=== PATIENT | female | born 1970 | race Caucasian/White ===

== ENCOUNTER 2016-11-23 23:15 | Inpatient (IN) | payer MEDICAID ==
[~2016-11-23] VITALS: Ht 167.6 cm; Wt 65.9 kg
--- NOTE | 2016-11-24 03:23 | ERA ---
ER Documentation Chief Complaint Date/Time DATE: 11/24/16 TIME: 03:22 Chief Complaint Right leg pain HPI The patient is a 46-year-old female, presenting to the ER because of right leg pain for more than 2 months. She was seen at [facility] about 2 weeks ago. She complained of worsening pain and the open lesion is getting bigger with foul-smelling discharge. She denies fever, chills, neck pain, chest pain, dyspnea, abdominal pain, vomiting, dysuria, diarrhea. She does not smoke nor drink Past medical/surgical history: None ROS All systems reviewed and are negative except as per history of present illness. Allergies Allergies: Coded Allergies: No Known Drug Allergies (Verified Allergy, Unknown, 11/23/16) Physical Exam Vitals Vital Signs Date Time Temp Pulse Resp B/P Pulse Ox O2 Delivery O2 Flow Rate FiO2 11/23/16 23:34 97.8 69 20 116/82 100 Physical Exam Const: No acute distress. Head: Atraumatic. Eyes: Normal Conjunctiva. ENT: Normal External Ears, Nose and Mouth. Neck: Full range of motion. No meningismus. Resp: Clear to auscultation bilaterally. Cardio: Regular rate and rhythm, no murmurs. Abd: Soft, non distended, normal bowel sounds, non tender. Skin: No petechiae or rashes. Back: No midline or flank tenderness. Ext: Right lower extremity with a large open lesion with foul- smelling discharge with surrounding erythema, vague and mild calf tenderness Neur: Awake and alert. No focal deficit Psych: Normal Mood and Affect. Result Diagram: 11/24/16 0401 11/24/16 0401 Results 24 hrs Laboratory Tests Test 11/24/16 04:01 White Blood Count 6.310^3/ul Red Blood Count 3.3010^6/ul Hemoglobin 9.4g/dl Hematocrit 29.5% Mean Corpuscular Volume 89.4fl Mean Corpuscular Hemoglobin 28.5pg Mean Corpuscular Hemoglobin Concent 31.9g/dl Red Cell Distribution Width 12.5% Platelet Count 71496^3/UL Mean Platelet Volume 10.5fl Neutrophils % 55.6% Lymphocytes % 33.2% Monocytes % 8.5% Eosinophils % 2.1% Basophils % 0.3% Nucleated Red Blood Cells % 0.0/100WBC Neutrophils # 3.510^3/ul Lymphocytes # 2.110^3/ul Monocytes # 0.510^3/ul Eosinophils # 0.110^3/ul Basophils # 0.010^3/ul Nucleated Red Blood Cells # 0.010^3/ul Prothrombin Time 12.5Sec Prothrombin Time Ratio 1.0 INR International Normalized Ratio 0.93 Activated Partial Thromboplast Time 21.3Sec Urine Color LT. YELLOW Urine Clarity CLEAR Urine pH 7.0 Urine Specific [place] 1.020 Urine Ketones NEGATIVE Urine Nitrite NEGATIVE Urine Bilirubin NEGATIVE Urine Urobilinogen 0.2 E.U./dL Urine Leukocyte Esterase 1+ Urine Microscopic RBC 0-2/HPF Urine Microscopic WBC 10-25/HPF Urine Squamous Epithelial Cells FEW Urine Bacteria OCCASIONAL Urine Hemoglobin NEGATIVE Urine Glucose NEGATIVE% Urine Total Protein NEGATIVE Sodium Level 138mmol/L Potassium Level 4.6mmol/L Chloride Level 103mmol/L Carbon Dioxide Level 26mmol/L Anion Gap 14 Blood Urea Nitrogen 15mg/dl Creatinine 0.79mg/dl Glucose Level 100mg/dl Lactic Acid Level 0.7mmol/L Calcium Level 9.5mg/dl Total Bilirubin 0.0mg/dl Direct Bilirubin 0.00mg/dl Indirect Bilirubin 0.0mg/dl Aspartate Amino Transf (AST/SGOT) 38IU/L Alanine Aminotransferase (ALT/SGPT) 43IU/L Alkaline Phosphatase 86IU/L Total Protein 8.6g/dl Albumin 4.7g/dl Globulin 3.90g/dl Albumin/Globulin Ratio 1.20 Current Medications Medications (Trade) Dose Ordered Sig/Maddie Route PRN Reason Start Time Stop Time Status Last Admin Dose Admin Vancomycin HCl 250 ml @ 125 mls/hr ONCE IVPB 11/24/16 04:00 11/24/16 05:59 Piperacillin Sod/ Tazobactam Sod (Zosyn 3.375gm/ 100 ml (Pmx)) 100 ml @ 200 mls/hr ONCE ONCE IVPB 11/24/16 04:00 11/24/16 04:29 DC 11/24/16 04:39 Procedures/MDM [place] [id number] Radiology Main Line: [phone] DIAGNOSTIC IMAGING REPORT Patient: ROSSY CHOU : 1970 Age: 46 Sex: F MR #: [id number] DOS: 11/24/16 0328 Ordering MD: ALMAS HERRERA MD Location: E/R Room/Bed: PROCEDURE: XR Tibia and Fibula. CLINICAL INDICATION: Pain TECHNIQUE: AP and lateral views of the right tibia and fibula are available for review. COMPARISON: None available FINDINGS: The osseous structures demonstrate normal alignment and mineralization. No acute fracture or dislocation is seen. There is no periostitis. No radiopaque foreign body is identified. There is diffuse soft tissue edema with varicosities there is a small plantar calcaneal spur. seen medially. IMPRESSION: 1. Diffuse soft tissue edema. No acute osseous abnormality identified. 2. Small plantar calcaneal spur. RPTAT: HH .Marianela Alexander MD, MD Date Time Electronically viewed and signed by .Marianela Alexander MD, MD on 11/24/2016 04 :41 .G/ CC: ALMAS HERRERA MD [place] [id number] Radiology Main Line: [phone] DIAGNOSTIC IMAGING REPORT Patient: ROSSY CHOU : 1970 Age: 46 Sex: F MR #: [id number] DOS: 11/24/16327 Ordering MD: ALMAS HERRERA MD Location: E/R Room/Bed: PROCEDURE: Lower extremity Doppler CLINICAL INDICATION: Swelling of limb TECHNIQUE: Fenton scale and color Doppler imaging of the right lower extremity COMPARISON: None FINDINGS: There is no evidence for deep venous thrombosis of the right lower extremity. The deep veins were fully compressible and normal augmentation was seen. No Augustin's cyst was seen. No calf vein thrombus was seen. IMPRESSION: No evidence for right deep venous thrombosis. RPTAT: HLBE Physician Caryl Date Time Electronically viewed and signed by Adry Childs Physician on 11/24/2016 04 :19 LE/ CC: ALMAS HERRERA MD [place] [id number] Radiology Main Line: [phone] DIAGNOSTIC IMAGING REPORT Patient: ROSSY CHOU : 1970 Age: 46 Sex: F MR #: [id number] DOS: 11/24/16 0328 Ordering MD: ALMAS HERRERA MD Location: E/R Room/Bed: PROCEDURE: XR Chest. CLINICAL INDICATION: Shortness of breath TECHNIQUE: An AP view of the chest was obtained. COMPARISON: No prior exam is available for comparison. FINDINGS: There is prominence of the interstitial markings. No pleural effusion or pneumothorax is seen. The cardiomediastinal silhouette is upper limits of normal in size. The osseous structures demonstrate senescent changes. IMPRESSION: Mild prominence of the interstitial markings, may reflect mild underlying interstitial edema or chronic lung changes. RPTAT: HH .Marianela Alexander MD, Date Time Electronically viewed and signed by .Marianela Alexander MD, MD on 11/24/2016 04 :42 .G/ CC: ALMAS HERRERA MD MEDICAL MAKING DECISION: The patient is a 46-year-old female, presenting with acute right lower extremity cellulitis, acute cystitis, acute dehydration. She was treated with vancomycin IV, Zosyn IV, normal saline 30 mL/kg IV. The differential diagnoses considered include but are not limited to abscess, osteomyelitis, UTI, pyelonephritis Departure Diagnosis: Primary Impression: Cellulitis of right leg Additional Impressions: UTI (urinary tract infection) Anemia Condition: Good Comments I discussed the findings with the patient. I discussed the patient with the on- call hospitalist Dr. Reddy who was made aware of the lab, the treatment, the patient condition. The patient is admitted to [facility] [place] at 4:45 am ALMAS HERRERA MD Nov 24, 2016 03:22
[2016-11-24] MEDS ORDERED: PIPER-TAZO 3.375 GM IV (PMX) 100 ML IVPB ONE (04:00)
[2016-11-24] MEDS ORDERED: VANCOMYCIN 1 GM (PMX) 250 ML IVPB SCH (04:00)
[2016-11-24 04:17] LABS: ADD SCAN DIFF NO
--- NOTE | 2016-11-24 04:19 | RADRPT ---
PROCEDURE: Lower extremity Doppler CLINICAL INDICATION: Swelling of limb TECHNIQUE: [place] scale and color Doppler imaging of the right lower extremity COMPARISON: None FINDINGS: There is no evidence for deep venous thrombosis of the right lower extremity. The deep veins were f ully compressible and normal augmentation was seen. No Augustin's cyst was seen. No calf vein thrombu s was seen. IMPRESSION: No evidence for right deep venous thrombosis. RPTAT: HLBE Adry Childs Physician Date Time Electronically viewed and signed by Adry Childs, Physician on 11/24/2016 04:19 LE/
[2016-11-24 04:21] LABS: BASOPHILS % 0.3 % (0.0-2.0); EOSINOPHILS # 0.1 10^3/ul (0.0-0.5); EOSINOPHILS % 2.1 % (0.0-7.0); HEMATOCRIT 29.5 % (37.0-47.0); HEMOGLOBIN 9.4 g/dl (12.0-16.0); LYMPHOCYTES # 2.1 10^3/ul (0.8-2.9); LYMPHOCYTES % 33.2 % (15.0-51.0); MEAN CORPUSCULAR HEMOGLOBIN 28.5 pg (29.0-33.0); MEAN CORPUSCULAR HGB CONC 31.9 g/dl (32.0-37.0); MEAN CORPUSCULAR VOLUME 89.4 fl (82.0-101.0); MEAN PLATELET VOLUME 10.5 fl (7.4-10.4); MONOCYTE # 0.5 10^3/ul (0.3-0.9); MONOCYTES % 8.5 % (0.0-11.0); NEUTROPHIL # 3.5 10^3/ul (1.6-7.5); NEUTROPHILS % 55.6 % (39.0-77.0); PLATELET COUNT 404 10^3/UL (140-415); RED CELL DISTRIBUTION WIDTH 12.5 % (11.5-14.5); WHITE BLOOD COUNT 6.3 10^3/ul (4.8-10.8)
[2016-11-24 04:22] LABS: ADD UMIC YES; URINE BILIRUBIN (Dip) NEGATIVE (NEGATIVE); URINE BLOOD (Dip) NEGATIVE (NEGATIVE); URINE COLOR LT. YELLOW (YELLOW); URINE GLUCOSE (Dip) NEGATIVE (NEGATIVE); URINE KETONES (Dip) NEGATIVE (NEGATIVE); URINE LEUKOCYTE ESTERASE (Dip) 1+ (NEGATIVE); URINE NITRITE (Dip) NEGATIVE (NEGATIVE); URINE TOTAL PROTEIN (Dip) NEGATIVE (NEGATIVE); URINE UROBILINOGEN (Dip) 0.2 E.U./dL (0.1-1.0)
[2016-11-24 04:31] LABS: INR 0.93; PROTIME 12.5 Sec (12.2-14.2)
[2016-11-24 04:32] LABS: PARTIAL THROMBOPLASTIN TIME 21.3 Sec (25.0-35.0)
[2016-11-24 04:36] LABS: BACTERIA,URINE OCCASIONAL; SQUAMOUS EPITHELIAL CELL,UR FEW; URINE RBCS 0-2 /HPF (0)
[2016-11-24 04:38] LABS: ALBUMIN 4.7 g/dl (3.3-4.9); ALBUMIN/GLOBULIN RATIO 1.2; CALCIUM 9.5 mg/dl (8.4-10.2); CREATININE 0.79 mg/dl (0.44-1.00); POTASSIUM 4.6 mmol/L (3.5-5.1); TOTAL PROTEIN 8.6 g/dl (6.1-8.1)
--- NOTE | 2016-11-24 04:41 | RADRPT ---
PROCEDURE: XR Tibia and Fibula. CLINICAL INDICATION: Pain TECHNIQUE: AP and lateral views of the right tibia and fibula are available for review. COMPARISON: None available FINDINGS: The osseous structures demonstrate normal alignment and mineralization. No acute fracture or disloc ation is seen. There is no periostitis. No radiopaque foreign body is identified. There is diffuse soft tissue edema with varicosities there is a small plantar calcaneal spur. seen medially. IMPRESSION: 1. Diffuse soft tissue edema. No acute osseous abnormality identified. 2. Small plantar calcaneal spur. RPTAT: HH .Marianela Alexander MD, MD Date Time Electronically viewed and signed by .Marianela Alexander MD, MD on 11/24/2016 04:41 .G/
--- NOTE | 2016-11-24 04:42 | RADRPT ---
PROCEDURE: XR Chest. CLINICAL INDICATION: Shortness of breath TECHNIQUE: An AP view of the chest was obtained. COMPARISON: No prior exam is available for comparison. FINDINGS: There is prominence of the interstitial markings. No pleural effusion or pneumothorax is seen. Th e cardiomediastinal silhouette is upper limits of normal in size. The osseous structures demonstra te senescent changes. 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 RPTAT: HH .Marianela Alexander MD, MD Date Time Electronically viewed and signed by .Marianela Alexander MD, MD on 11/24/2016 04:42 .G/
[2016-11-24] MEDS ORDERED: SOD CHLORIDE 0.9% IV ONE (05:30)
[2016-11-24] MEDS ORDERED: ACETAMINOPHEN 325 MG TAB PO PRN (07:30)
[2016-11-24] MEDS ORDERED: morphine 2 MG INJ IV PRN (07:30)
[2016-11-24] MEDS ORDERED: NACL 0.9% 3 ML SYG IV SCH (07:30)
[2016-11-24] MEDS ORDERED: ONDANSETRON 4 MG INJ IV PRN (07:30)
[2016-11-24] MEDS ORDERED: VANCOMYCIN IV PER PHARMACY XX SCH (07:30)
[2016-11-24] MEDS: CEFEPIME 1GM/50 ML (PMX) 50 ML IVPB SCH ×2 (08:54→23:17)
[2016-11-24] MEDS: HEPARIN 5,000 UNIT/0.5 ML VIAL SC SCH ×2 (08:57→23:19)
--- NOTE | 2016-11-24 09:17 | HP ---
Date/Time of Note Date/Time of Note DATE: 11/24/16 TIME: 09:09 Assessment/Plan VTE Prophylaxis VTE Prophylaxis Intervention: heparin Assessment/Plan Assessment/Plan IMPRESSION 46 yo female with progressively worsening Right leg Ulcer of 2 months duration despite abx treatment PLAN Broad spectrum abx ID and vascular consult Pain mgmt will f/u culture results HPI/ROS Admit Date/Time Admit Date/Time Hx of Present Illness This is a 46 yo female with no significant medical history who presented to ER with Right leg wound/ulcer and pain. She said it started out small 2 months ago with associated erythema on her floyd, but has been progressively getting worse. she said she has been to [facility] and has been treated with abx without help. Denied I&D. She does not have any other complains. . PMH/Family/Social Social History Smoking Status: Never smoker Exam/Review of Systems Vital Signs Vitals Vital Signs Date Time Temp Pulse Resp B/P Pulse Ox O2 Delivery O2 Flow Rate FiO2 11/24/16 08:00 69 18 113/61 100 Room Air 11/24/16 05:24 98.1 Exam Constitutional: alert, oriented, well developed Psych: no complaints Head: atraumatic, normocephalic Eyes: EOMI, PERRL Respiratory: clear to auscultation, normal air movement Cardiovascular: nl pulses, regular rate and rhythm Gastrointestinal: non-tender, soft Extremities: other (right leg with moderate size ulcer on lower floyd with surrounding erythema. there are eythematous area upper floyd with very superficial silvery s) Labs Result Diagram: 11/24/16 0401 11/24/16 0401 Medications Medications Current Medications Ondansetron HCl (Zofran Inj) 4 mg Q6H PRN IV NAUSEA AND/OR VOMITING; Start at 07:30; Status UNV Acetaminophen (Tylenol Tab) 650 mg Q6H PRN PO PAIN LEVEL 1-3 OR FEVER; Start at 07:30; Status UNV Morphine Sulfate (morphine) 2 mg Q4H PRN IV SEVERE PAIN LEVEL 7-10; Start 11/24 at 07:30; Status UNV Heparin Sodium (Porcine) 5000 unit 5,000 unit Q12 SC Last administered on t 08:57; Admin Dose 5,000 UNIT; Start 11/24/16 at 09:00 Cefepime HCl (Maxipime 1gm/50 ml (Pmx)) 50 ml @ 100 mls/hr Q12 IVPB Last administered on 11/24/16t 08:54; Admin Dose 100 MLS/HR; Start 11/24/16 at 09:00 HERMELINDO LLOYD MD Nov 24, 2016 09:17
--- NOTE | 2016-11-24 14:21 | CONS ---
DATE OF ADMISSION: 11/23/2016 DATE OF CONSULTATION: 11/24/2016 REFERRING PHYSICIAN: Dr. Earlene Grimaldo REASON FOR CONSULTATION: Right medial ankle chronic venous ulcer. HISTORY OF PRESENT ILLNESS: This is a very pleasant 46-year-old woman. She is otherwise healthy. She has large varicose veins in the right leg, but had not really had any problem with them until ab out 2 months ago when she bumped her right ankle and it has been progressively enlarging. The venous stasis ulcer is just not healing. She has putting bacitracin on it and it has progressed and she p romptly came to the emergency room today. PAST MEDICAL HISTORY: Significant for nothing. She has not had any surgeries. She has no medical p roblems such as diabetes or hypertension. She does have large varicose veins in the right thigh and calf and she has in the past used compression stockings, but not recently. MEDICATIONS: Prior to admission she was just using some Bactroban ointment. ALLERGIES: NO KNOWN DRUG ALLERGIES. SOCIAL HISTORY: She is a nonsmoker. She works at [employer]. She stands on her feet . FAMILY HISTORY: Noncontributory. PHYSICAL EXAMINATION: GENERAL: She is a middle-aged, woman. 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 NECK: She has 2+ carotid pulses bilaterally, 2+ radial and brachial pulses bilaterally. LUNGS: Clear. HEART: Regular rate. EXTREMITIES: 2+ popliteal, DP and PT pulses in both lower extremities. She has huge varicose veins in the right medial thigh and calf, even going down and there is a large necrotic venous peewee is ulcer at the right . There is some mild edema around the serous drainage. She has no t decompression. She has 1 to 2+ edema in the calf and foot. LABORATORY DATA: White count is normal IMPRESSION: Nonhealing venous stasis ulcer, right medial ankle. X-ray shows no osteomyelitis. ___ __ venous pressure venous insufficiency. She needs wound care. I will order Arslan to be appli ed and see Dr. Mejia. She is less cellulitis is under controlled with the multilayer c ompression wraps . Dictated By: GUILHERME SHEFFIELD/ALEXY Conf#: [id number] DID#: [id number] CC: EARLENE GRIMALDO MD; MARIA A MEJIA DPM;*End*
[2016-11-24] MEDS: VANCOMYCIN 1 GM in NS 250 ML IVPB SCH (15:17)
--- NOTE | 2016-11-24 16:03 | PN ---
Date/Time of Note Date/Time of Note DATE: 11/24/16 TIME: 16:00 Assessment/Plan VTE Prophylaxis VTE Prophylaxis Intervention: other Assessment/Plan Chief Complaint/Hosp Course Assessment and plan 1. right leg Ulcer of 2 months duration despite abx treatment Continue Broad spectrum abx vascular surgery and podiatry consult is been obtained Pain mgmt will f/u culture results Arterial study as per vascular surgeon We will continue monitor patient closely for further management as per clinical course Problems: Subjective 24 Hr Interval Summary Free Text/Dictation Patient continues to complain of having right lower extremity discomfort No fever or chills Denies of any chest pain or shortness of breath Exam/Review of Systems Vital Signs Vitals Vital Signs Date Time Temp Pulse Resp B/P Pulse Ox O2 Delivery O2 Flow Rate FiO2 11/24/16 14:43 98.6 69 18 147/86 100 Room Air Exam General: The patient is well-developed, Not in acute distress. HEENT: Atraumatic, normocephalic. The pupils are equal and round . Neck: Supple with full range of motion. Chest: Normal expansion of the thorax during inspiration Lungs: Clear to auscultation bilaterally Heart: Normal S1-S2, Regular rhythm and rate. Abdomen: Soft , nontender, nondistended , bowel sounds are present. Extremities: Right ankle ulcer 35 cm in medial aspect of the floyd with erythema , minimal edema Neurologic: Normal mental status,The patient is awake, alert and oriented . Results Result Diagram: 11/24/16 0401 11/24/16 0401 Results 24 hrs Laboratory Tests Test 11/24/16 04:01 11/24/16 05:50 11/24/16 08:31 White Blood Count 6.3 Red Blood Count 3.30 L Hemoglobin 9.4 L Hematocrit 29.5 L Mean Corpuscular Volume 89.4 Mean Corpuscular Hemoglobin 28.5 L Mean Corpuscular Hemoglobin Concent 31.9 L Red Cell Distribution Width 12.5 Platelet Count 404 Mean Platelet Volume 10.5 H Neutrophils % 55.6 Lymphocytes % 33.2 Monocytes % 8.5 Eosinophils % 2.1 Basophils % 0.3 Nucleated Red Blood Cells % 0.0 Neutrophils # 3.5 Lymphocytes # 2.1 Monocytes # 0.5 Eosinophils # 0.1 Basophils # 0.0 Nucleated Red Blood Cells # 0.0 Erythrocyte Sedimentation Rate 27 H Prothrombin Time 12.5 Prothrombin Time Ratio 1.0 INR International Normalized Ratio 0.93 Activated Partial Thromboplast Time 21.3 L Urine Color LT. YELLOW Urine Clarity CLEAR Urine pH 7.0 Urine Specific [place] 1.020 Urine Ketones NEGATIVE Urine Nitrite NEGATIVE Urine Bilirubin NEGATIVE Urine Urobilinogen 0.2 E.U./dL Urine Leukocyte Esterase 1+ H Urine Microscopic RBC 0-2 Urine Microscopic WBC 10-25 Urine Squamous Epithelial Cells FEW Urine Bacteria OCCASIONAL Urine Hemoglobin NEGATIVE Urine Glucose NEGATIVE Urine Total Protein NEGATIVE Sodium Level 138 Potassium Level 4.6 Chloride Level 103 Carbon Dioxide Level 26 Anion Gap 14 Blood Urea Nitrogen 15 Creatinine 0.79 Glucose Level 100 Lactic Acid Level 0.7 1.5 0.7 Calcium Level 9.5 Total Bilirubin 0.0 L Direct Bilirubin 0.00 Indirect Bilirubin 0.0 Aspartate Amino Transf (AST/SGOT) 38 Alanine Aminotransferase (ALT/SGPT) 43 Alkaline Phosphatase 86 Total Protein 8.6 H Albumin 4.7 Globulin 3.90 H Albumin/Globulin Ratio 1.20 Medications Medications Current Medications Ondansetron HCl (Zofran Inj) 4 mg Q6H PRN IV NAUSEA AND/OR VOMITING; Start at 07:30 Acetaminophen (Tylenol Tab) 650 mg Q6H PRN PO PAIN LEVEL 1-3 OR FEVER; Start at 07:30 Morphine Sulfate (morphine) 2 mg Q4H PRN IV SEVERE PAIN LEVEL 7-10; Start 11/24 at 07:30 Heparin Sodium (Porcine) 5000 unit 5,000 unit Q12 SC Last administered on 08:57; Admin Dose 5,000 UNIT; Start 11/24/16 at 09:00 Cefepime HCl (Maxipime 1gm/50 ml (Pmx)) 50 ml @ 100 mls/hr Q12 IVPB Last administered on 11/24/16 08:54; Admin Dose 100 MLS/HR; Start 11/24/16 at 09:00 Collagenase 1 applic 1 applic DAILY TOP ; Start 11/25/16 at 09:00 Vancomycin HCl (Vancocin) 250 ml @ 125 mls/hr Q12H IVPB Last administered on 15:17; Admin Dose 125 MLS/HR; Start 11/24/16 at 14:30 EARLENE GRIMALDO MD Nov 24, 2016 16:02
[2016-11-24 21:22] VITALS: PULSE 64; TEMP 98
[2016-11-24 21:40] VITALS: Ht 167.6 cm; Wt 65.9 kg
[2016-11-25] MEDS: VANCOMYCIN 1 GM in NS 250 ML IVPB SCH ×2 (04:05→15:56)
[2016-11-25 05:57] LABS: ADD SCAN DIFF NO
[2016-11-25 06:10] LABS: BASOPHILS % 0.5 % (0.0-2.0); EOSINOPHILS # 0.2 10^3/ul (0.0-0.5); EOSINOPHILS % 3.4 % (0.0-7.0); HEMATOCRIT 37.6 % (37.0-47.0); LYMPHOCYTES # 2.1 10^3/ul (0.8-2.9); LYMPHOCYTES % 37.4 % (15.0-51.0); MEAN CORPUSCULAR HEMOGLOBIN 28.5 pg (29.0-33.0); MEAN CORPUSCULAR HGB CONC 31.9 g/dl (32.0-37.0); MEAN CORPUSCULAR VOLUME 89.3 fl (82.0-101.0); MEAN PLATELET VOLUME 9.9 fl (7.4-10.4); MONOCYTE # 0.5 10^3/ul (0.3-0.9); MONOCYTES % 9.3 % (0.0-11.0); NEUTROPHIL # 2.8 10^3/ul (1.6-7.5); NEUTROPHILS % 49.4 % (39.0-77.0); PLATELET COUNT 283 10^3/UL (140-415); RED BLOOD COUNT 4.21 10^6/ul (4.20-5.40); RED CELL DISTRIBUTION WIDTH 12.3 % (11.5-14.5); WHITE BLOOD COUNT 5.7 10^3/ul (4.8-10.8)
[2016-11-25] MEDS ORDERED: PENDING SANTYL ORDER FOR WOUND CARE XX PRN (06:30)
[2016-11-25 06:31] LABS: BILIRUBIN,INDIRECT 0.3 mg/dl (0-1.1); BILIRUBIN,TOTAL 0.3 mg/dl (0.2-1.3); CREATININE 0.74 mg/dl (0.44-1.00)
[2016-11-25 06:32] LABS: CALCIUM 9.2 mg/dl (8.4-10.2); PHOSPHORUS 3.8 mg/dl (2.5-4.9)
[2016-11-25 08:12] VITALS: BP 121/76; RESP 18
[2016-11-25 08:25] LABS: CHOL/HDL RATIO 2.5 RATIO
[2016-11-25] MEDS: HEPARIN 5,000 UNIT/0.5 ML VIAL SC SCH ×2 (08:39→21:50)
--- NOTE | 2016-11-25 09:54 | PN ---
Date/Time of Note Date/Time of Note DATE: 11/25/16 TIME: 09:46 Assessment/Plan VTE Prophylaxis VTE Prophylaxis Intervention: heparin Lines/Catheters IV [facility] Saline Lock Urinary Cath still in place: No Assessment/Plan Chief Complaint/Hosp Course Assessment and plan 1. Right leg ulcer for 2 months duration (failed outpatient antibiotic treatment). Continue on antibiotics for now. Vascular surgeon following. Patient for vascular study. Will follow up. Podiatry to follow continue pain management. Follow-up on cultures. Adjust antibiotics accordingly. Disposition plan: Follow-up on arterial study. Continue supportive care Discussed plan of care with Dr. Hubbard Problems: Subjective 24 Hr Interval Summary Free Text/Dictation patient for vascular study Exam/Review of Systems Vital Signs Vitals Vital Signs Date Time Temp Pulse Resp B/P Pulse Ox O2 Delivery O2 Flow Rate FiO2 11/25/16 08:12 98.6 78 18 121/76 97 11/24/16 21:22 Room Air Intake and Output 11/24/16 11/24/16 11/25/16 14:59 22:59 06:59 Intake Total 1250 ml Balance 1250 ml Exam patient for vascular study Results Result Diagram: 11/25/16 0505 11/25/16 0505 Results 24 hrs Laboratory Tests Test 11/25/16 05:05 White Blood Count 5.7 Red Blood Count 4.21 # Hemoglobin 12.0 # Hematocrit 37.6 # Mean Corpuscular Volume 89.3 Mean Corpuscular Hemoglobin 28.5 L Mean Corpuscular Hemoglobin Concent 31.9 L Red Cell Distribution Width 12.3 Platelet Count 283 # Mean Platelet Volume 9.9 Neutrophils % 49.4 Lymphocytes % 37.4 Monocytes % 9.3 Eosinophils % 3.4 Basophils % 0.5 Nucleated Red Blood Cells % 0.0 Neutrophils # 2.8 Lymphocytes # 2.1 Monocytes # 0.5 Eosinophils # 0.2 Basophils # 0.0 Nucleated Red Blood Cells # 0.0 Sodium Level 142 Potassium Level 4.0 Chloride Level 104 Carbon Dioxide Level 27 Anion Gap 15 Blood Urea Nitrogen 11 Creatinine 0.74 Glucose Level 93 Calcium Level 9.2 Phosphorus Level 3.8 Magnesium Level 2.0 Total Bilirubin 0.3 Direct Bilirubin 0.00 Indirect Bilirubin 0.3 Aspartate Amino Transf (AST/SGOT) 32 Alanine Aminotransferase (ALT/SGPT) 37 Alkaline Phosphatase 82 Total Protein 8.0 Albumin 4.0 Globulin 4.00 H Albumin/Globulin Ratio 1.00 Triglycerides Level 61 Cholesterol Level 171 LDL Cholesterol, Calculated 93 HDL Cholesterol 66 Cholesterol/HDL Ratio 2.5 Medications Medications Current Medications Ondansetron HCl (Zofran Inj) 4 mg Q6H PRN IV NAUSEA AND/OR VOMITING; Start at 07:30 Acetaminophen (Tylenol Tab) 650 mg Q6H PRN PO PAIN LEVEL 1-3 OR FEVER; Start at 07:30 Morphine Sulfate (morphine) 2 mg Q4H PRN IV SEVERE PAIN LEVEL 7-10; Start 11/24 at 07:30 Heparin Sodium (Porcine) 5000 unit 5,000 unit Q12 SC Last administered on 08:39; Admin Dose 5,000 UNIT; Start 11/24/16 at 09:00 Cefepime HCl (Maxipime 1gm/50 ml (Pmx)) 50 ml @ 100 mls/hr Q12 IVPB Last administered on 11/24/16 23:17; Admin Dose 100 MLS/HR; Start 11/24/16 at 09:00 Collagenase 1 applic 1 applic DAILY TOP ; Start 11/25/16 at 09:00 Vancomycin HCl (Vancocin) 250 ml @ 125 mls/hr Q12H IVPB Last administered on 04:05; Admin Dose 125 MLS/HR; Start 11/24/16 at 14:30 Miscellaneous Information (*Rx Drug Level Order Reminder*) VANCO TR LEVEL PRIOR... ONCE ONCE XX ; Start 11/25/16 at 13:30; Stop 11/25/16 at 13:31 Miscellaneous Information (Pending Santyl Order For Wound Care) This patient caro... PRN PRN XX WOUND CARE; Start 11/25/16 at 06:30 KM RODRIGUEZ Nov 25, 2016 09:54
[2016-11-25] MEDS: CEFEPIME 1GM/50 ML (PMX) 50 ML IVPB SCH ×2 (12:27→21:49)
[2016-11-25] MEDS: COLLAGENASE 30 GM TUBE TOP SCH (16:00)
--- NOTE | 2016-11-25 19:57 | RADRPT ---
PROCEDURE: US bilateral lower extremity arteries. CLINICAL INDICATION: Bilateral leg pain. Claudication that interferes significantly with the hola ent's lifestyle. TECHNIQUE: Multiple longitudinal and transverse images of the bilateral lower extremity arteries w ere obtained with crook scale, pulsed Doppler, and color Doppler imaging. COMPARISON: No prior studies are available for comparison. FINDINGS: Right SENIOR SUPPLIER QUALITY ENGINEER:108 cm/sec PSFA:102 cm/sec MSFA:101 cm/sec DSFA:95 cm/sec POP:58 cm/sec AUTOMATIC NAILING MACHINE FEEDER:91 cm/sec DPA:34 cm/sec Left SENIOR SUPPLIER QUALITY ENGINEER:99 cm/sec PSFA:94 cm/sec MSFA:76 cm/sec DSFA:67 cm/sec POP:67 cm/sec AUTOMATIC NAILING MACHINE FEEDER:93 cm/sec DPA:45 cm/sec The right ankle-brachial index is 0.9 and the left ankle-brachial index is 1.0. There is normal triphasic flow throughout bilaterally. There is no plaque, stenosis, or occlusion. IMPRESSION: 1. Normal bilateral lower extremity arterial Doppler. RPTAT: QQ .Mich Hirsch MD, Date Time Electronically viewed and signed by .Mich Hirsch MD, on 11/25/2016 19:57 .R/
[2016-11-25 20:17] VITALS: BP 134/71; RESP 20
[2016-11-26] MEDS: VANCOMYCIN 1 GM in NS 250 ML IVPB SCH ×2 (02:05→14:58)
[2016-11-26 08:00] VITALS: BP 120/76; RESP 19
[2016-11-26] MEDS: CEFEPIME 1GM/50 ML (PMX) 50 ML IVPB SCH ×2 (09:55→21:15)
[2016-11-26] MEDS: HEPARIN 5,000 UNIT/0.5 ML VIAL SC SCH ×2 (09:56→21:17)
[2016-11-26] MEDS: COLLAGENASE 30 GM TUBE TOP SCH (09:57)
--- NOTE | 2016-11-26 10:57 | PN ---
Date/Time of Note Date/Time of Note DATE: 11/26/16 TIME: 10:54 Assessment/Plan VTE Prophylaxis VTE Prophylaxis Intervention: heparin Lines/Catheters IV Catheter Type (from Nrsg): Peripheral IV Urinary Cath still in place: No Assessment/Plan Chief Complaint/Hosp Course Assessment and plan 1. Right leg ulcer for 2 months duration (failed outpatient antibiotic treatment). Continue on antibiotics for now. Of note culture did show Proteus and enterococcus species. Vascular surgeon following. Status post arterial vascular study with noted normal bilateral lower extremity arterial Doppler. . Podiatry to follow .continue pain management. Disposition plan: Continue antibiotics. Await podiatry input. Continue in- house monitoring Discussed plan of care with Dr. Hubbard Problems: Subjective 24 Hr Interval Summary Free Text/Dictation Denies any pain at this time. Comfortable at present Exam/Review of Systems Vital Signs Vitals Vital Signs Date Time Temp Pulse Resp B/P Pulse Ox O2 Delivery O2 Flow Rate FiO2 11/26/16 08:00 97.5 67 19 120/76 99 11/24/16 21:22 Room Air Intake and Output 11/25/16 11/25/16 11/26/16 15:00 23:00 07:00 Intake Total 50 ml 350 ml 850 ml Balance 50 ml 350 ml 850 ml Exam Constitutional: alert, oriented Psych: nl mood/affect Head: normocephalic Eyes: nl conjunctiva Neck: supple, No jvd Respiratory: clear to auscultation, normal air movement Cardiovascular: regular rate and rhythm Gastrointestinal: non-tender Musculoskeletal: nl gait and stance Neurological: RFID ENGINEER II-XII intact, nl mental status, nl speech Skin: other (Erythema seen on right lower extremity with some scaly appearance) Results Result Diagram: 11/25/16 0505 11/25/16 0505 Results 24 hrs Laboratory Tests Test 11/25/16 15:30 Vancomycin Level Trough 10.3 Medications Medications Current Medications Ondansetron HCl (Zofran Inj) 4 mg Q6H PRN IV NAUSEA AND/OR VOMITING; Start at 07:30 Acetaminophen (Tylenol Tab) 650 mg Q6H PRN PO PAIN LEVEL 1-3 OR FEVER; Start at 07:30 Morphine Sulfate (morphine) 2 mg Q4H PRN IV SEVERE PAIN LEVEL 7-10; Start 11/24 at 07:30 Heparin Sodium (Porcine) 5000 unit 5,000 unit Q12 SC Last administered on 09:56; Admin Dose 5,000 UNIT; Start 11/24/16 at 09:00 Cefepime HCl (Maxipime 1gm/50 ml (Pmx)) 50 ml @ 100 mls/hr Q12 IVPB Last administered on 11/26/16 09:55; Admin Dose 100 MLS/HR; Start 11/24/16 at 09:00 Collagenase 1 applic 1 applic DAILY TOP Last administered on 11/26/16 09:57; Admin Dose 1 APPLIC; Start 11/25/16 at 09:00 Vancomycin HCl (Vancocin) 250 ml @ 125 mls/hr Q12H IVPB Last administered on 02:05; Admin Dose 125 MLS/HR; Start 11/24/16 at 14:30 Miscellaneous Information (Pending Santyl Order For Wound Care) This patient caro... PRN PRN XX WOUND CARE; Start 11/25/16 at 06:30 MK RODRIGUEZ Nov 26, 2016 10:57
--- NOTE | 2016-11-26 12:33 | PN ---
Date/Time of Note Date/Time of Note DATE: 11/26/16 TIME: 12:30 Assessment/Plan Lines/Catheters IV Catheter Type (from Nrs): Peripheral IV Small in Place (from Nrsg): No Subjective 24 Hr Interval Summary Wound is still very tender. She says the dressings have not been changed since she was admitted. Exam/Review of Systems Vital Signs Vitals Vital Signs Date Time Temp Pulse Resp B/P Pulse Ox O2 Delivery O2 Flow Rate FiO2 11/26/16 08:00 97.5 67 19 120/76 99 11/24/16 21:22 Room Air Intake and Output 11/25/16 11/25/16 11/26/16 15:00 23:00 07:00 Intake Total 50 ml 350 ml 850 ml Balance 50 ml 350 ml 850 ml Exam Free Text/Dictation R medial calf / ankle infected venous stasis ulcer with huge varicose veins in the thigh and calf Santyl was ordered to be applied to the wound daily Antibiotics per ID Will benefit from 4 layer compression wrap when the infection has resolved and she is less tender Can discharge from my [facility] with PO antibiotics and wound care and f/u with me in the [facility] later this week for debridement and compression therapy Results Result Diagram: 11/25/16 0505 11/25/16 0505 GUILHERME STEWART MD Nov 26, 2016 12:33
[2016-11-26 22:06] VITALS: BP 113/68; RESP 18
[2016-11-27] MEDS: VANCOMYCIN 1 GM in NS 250 ML IVPB SCH ×2 (02:57→14:22)
[2016-11-27 07:35] VITALS: BP 117/71; RESP 16
[2016-11-27] MEDS: COLLAGENASE 30 GM TUBE TOP SCH (09:31)
[2016-11-27] MEDS: CEFEPIME 1GM/50 ML (PMX) 50 ML IVPB SCH ×2 (09:31→20:43)
[2016-11-27] MEDS: HEPARIN 5,000 UNIT/0.5 ML VIAL SC SCH ×2 (09:33→20:44)
--- NOTE | 2016-11-27 16:45 | PN ---
DATE: 11/27/2016 TIME OF EVALUATION: 12:30 p.m. SUBJECTIVE DATA: Denies any right lower extremity pain. The patient is anxious about when she can go home. OBJECTIVE DATA: VITAL SIGNS: Temperature 98.0, pulse rate 57, respiratory rate 16, blood pressure 117/71, oxygen saturation 100% on room air. GENERAL: This is a well-built, well-nourished, female lying in bed in no apparent distress. HEENT: Head normocephalic and atraumatic. Eyes: Anicteric sclerae. Conjunctivae clear. ENT: Nasal septum is midline. Oral mucosa is moist. NECK: Supple. No JVD noticed. RESPIRATORY: Bilaterally clear to auscultation. No adventitious breath sounds. No use of accessory muscles of respiration. CARDIAC: Regular rate and rhythm. No murmurs heard. ABDOMEN: Soft, nontender, nondistended. Bowel sounds positive in all 4 quadrants. GENITOURINARY: Deferred. EXTREMITIES: No cyanosis, no clubbing. Right lower extremity dressing. Right foot tenderness to touch. Peripheral pulses in the bilateral lower extremities are palpable. NEUROLOGIC: The patient is awake, alert and oriented. Cranial nerves are grossly intact. LABORATORY AND DIAGNOSTIC DATA: None for today. ASSESSMENT AND PLAN: 1. Nonhealing venous stasis ulcer of the right medial ankle: Continue antibiotics. We will involve Infectious Disease for streamlining antibiotics. Status-post evaluation by Vascular Surgery who recommended dressing changes. 2. Fluid, Electrolytes and Nutrition: Regular diet. 3. Deep venous thrombosis prophylaxis: Subcutaneous heparin. 4. Gastrointestinal prophylaxis: Not indicated. 5. Plan. Continue antibiotics. Continue pain control. Await ID evaluation. The case was discussed with Dr. Saha. The plan of care was explained to the patient with the help of a certified field crop harvest worker. CHELSEA SAHA MD, AM/ALEXY Conf#: [id number] DID#: [id number] MTDD
[2016-11-27 20:01] VITALS: BP 114/56; RESP 18
--- NOTE | 2016-11-27 20:10 | CONS ---
DATE OF ADMISSION: 11/24/2016 DATE OF CONSULTATION: 11/27/2016 TYPE OF CONSULTATION: Infectious disease. REASON FOR CONSULTATION: Antibiotic management. HISTORY OF PRESENT ILLNESS: Evy Cordova is a 46-year-old female with no significant past medic al history who comes to the emergency room with right leg wound ulcer and pain. She states that it started about 2 months ago, associated with redness on her floyd, but has been progressively getting worse. She was started on antibiotics at [facility]. She did not have an I and D. She comes in no w. On admission, her white count 6.3, H and H 9.4 and 29.5, platelet count 404,000. BUN and creati nine 15/0.79 and random glucose is 100. PAST MEDICAL HISTORY: Operations: None. FAMILY HISTORY: Noncontributory. SOCIAL HISTORY: She does not smoke, drink, or abuse drugs. ALLERGIES: NONE TO PENICILLIN, SULFA, OR FOODS. MEDICATIONS: Per chart. REVIEW OF SYSTEMS: As per HPI. PHYSICAL EXAMINATION: GENERAL: The patient is a well-developed, well-nourished female who is alert, responsive, in no acu te distress. VITAL SIGNS: Stable. She is afebrile. SKIN: Without generalized rash. HEENT: Within normal limits. NECK: Supple. LYMPH NODES: None palpable. CHEST: Decreased breath sounds at the bases. HEART: Without murmur or gallop. ABDOMEN: Soft, nontender without organosplenomegaly or masses. EXTREMITIES: Her right leg has a moderate sized ulcer on the lower tibial area with surrounding uri thema. There are some erythematous areas of the upper floyd as well. RECTAL AND GENITAL: Deferred. NEUROLOGIC: No focal neurological abnormalities. HOSPITAL COURSE: The patient had cultures done, which grew out Proteus mirabilis and enterococcus. Urine was negative. Blood cultures were negative. The patient was started on vancomycin and cefep ellie. X-rays of the tibia and fibula just showed diffuse soft tissue edema. Venous studies were neg ative for DVT. Chest x-ray: Mild prominence of interstitial markings, may reflect underlying inter stitial edema. She had an arterial study done, normal bilateral lower extremity arterial Dopplers. She was seen also by Dr. Reynoso in vascular consultation and he notes right medial calf and ankle in fected venous stasis ulcer with huge varicose veins in the thigh and calf. Will benefit from 4 laye r compression wrap when the infection has resolved and she is less tender. She can get debridement and compression therapy at the [facility]. For now, we will continue her on vancomycin and cefepime. I want to thank the hospitalists for asking me to see this jory lady in consultation. Dictated By: KAREN BAKER MD, JD/ALEXY Conf#: [id number] DID#: [id number] CC: HERMELINDO LLOYD MD;*EndCC*
--- NOTE | 2016-11-27 23:33 | CONS ---
Date/Time of Note Date/Time of Note DATE: 11/27/16 TIME: 23:33 Assessment/Plan Assessment/Plan Problems: (1) Cellulitis of right leg Status: Acute (2) Anemia Status: Acute (3) UTI (urinary tract infection) Status: Acute Additional Assessment/Plan Patient is under care of vascular surgery. Patient will require compression of the right lower extremity with daily dressing changes. Santyl ointment to the wound daily. Patient will be followed in-house. Thank you for consultation. Consultation Date/Type/Reason Admit Date/Time Psychological: nl mood/affect Social History Smoking Status: Never smoker Exam/Review of Systems Vital Signs Vitals Vital Signs Date Time Temp Pulse Resp B/P Pulse Ox O2 Delivery O2 Flow Rate FiO2 11/27/16 20:01 97.8 66 18 114/56 99 11/24/16 21:22 Room Air Intake and Output 11/26/16 11/26/16 11/27/16 15:00 23:00 07:00 Intake Total 50 ml 1150 ml 1050 ml Balance 50 ml 1150 ml 1050 ml Results Result Diagram: 11/25/16 0505 11/25/16 0505 Medications Medications Current Medications Ondansetron HCl (Zofran Inj) 4 mg Q6H PRN IV NAUSEA AND/OR VOMITING; Start at 07:30 Acetaminophen (Tylenol Tab) 650 mg Q6H PRN PO PAIN LEVEL 1-3 OR FEVER; Start at 07:30 Morphine Sulfate (morphine) 2 mg Q4H PRN IV SEVERE PAIN LEVEL 7-10; Start 11/24 at 07:30 Heparin Sodium (Porcine) 5000 unit 5,000 unit Q12 SC Last administered on 20:44; Admin Dose 5,000 UNIT; Start 11/24/16 at 09:00 Cefepime HCl (Maxipime 1gm/50 ml (Pmx)) 50 ml @ 100 mls/hr Q12 IVPB Last administered on 11/27/16 20:43; Admin Dose 100 MLS/HR; Start 11/24/16 at 09:00 Collagenase 1 applic 1 applic DAILY TOP Last administered on 11/27/16 09:31; Admin Dose 1 APPLIC; Start 11/25/16 at 09:00 Vancomycin HCl (Vancocin) 250 ml @ 125 mls/hr Q12H IVPB Last administered on t 14:22; Admin Dose 125 MLS/HR; Start 11/24/16 at 14:30 Miscellaneous Information (Pending [facility] Order For Wound Care) This patient caro... PRN PRN XX WOUND CARE; Start 11/25/16 at 06:30 MARIA A MEJIA DPM November 27, 2016 23:33
[2016-11-28] MEDS: VANCOMYCIN 1 GM in NS 250 ML IVPB SCH (03:02)
[2016-11-28 05:38] LABS: ADD SCAN DIFF NO
[2016-11-28 05:55] LABS: BASOPHILS % 0.4 % (0.0-2.0); EOSINOPHILS # 0.2 10^3/ul (0.0-0.5); HEMATOCRIT 39.3 % (37.0-47.0); HEMOGLOBIN 12.7 g/dl (12.0-16.0); LYMPHOCYTES # 2.2 10^3/ul (0.8-2.9); LYMPHOCYTES % 39.1 % (15.0-51.0); MEAN CORPUSCULAR HEMOGLOBIN 28.5 pg (29.0-33.0); MEAN CORPUSCULAR HGB CONC 32.3 g/dl (32.0-37.0); MEAN CORPUSCULAR VOLUME 88.1 fl (82.0-101.0); MEAN PLATELET VOLUME 9.8 fl (7.4-10.4); MONOCYTE # 0.5 10^3/ul (0.3-0.9); NEUTROPHIL # 2.6 10^3/ul (1.6-7.5); NEUTROPHILS % 47.3 % (39.0-77.0); PLATELET COUNT 302 10^3/UL (140-415); RED BLOOD COUNT 4.46 10^6/ul (4.20-5.40); RED CELL DISTRIBUTION WIDTH 12.3 % (11.5-14.5); WHITE BLOOD COUNT 5.6 10^3/ul (4.8-10.8)
[2016-11-28 06:05] LABS: CALCIUM 9.6 mg/dl (8.4-10.2); CREATININE 0.63 mg/dl (0.44-1.00); MAGNESIUM 1.9 mg/dl (1.7-2.5); PHOSPHORUS 4.4 mg/dl (2.5-4.9)
[2016-11-28 07:51] VITALS: BP 96/61; RESP 20
[2016-11-28] MEDS: COLLAGENASE 30 GM TUBE TOP SCH (09:00)
[2016-11-28] MEDS: CEFEPIME 1GM/50 ML (PMX) 50 ML IVPB SCH (10:30)
[2016-11-28] MEDS: HEPARIN 5,000 UNIT/0.5 ML VIAL SC SCH (10:32)
--- NOTE | 2016-11-28 13:22 | PN ---
DATE: 11/28/2016 SUBJECTIVE: No acute events overnight. No fevers. The patient is alert, feels good, looks comfort able. MICROBIOLOGY: Wound culture growing Proteus mirabilis and enterococcus species. ANTIMICROBIALS: The patient is on: 1. Vancomycin. 2. Cefepime. PHYSICAL EXAMINATION: GENERAL: Well-developed, middle-aged woman who is alert, in no distress. HEENT: Head atraumatic, normocephalic. Sclerae anicteric. Buccal mucosa pink. NECK: Supple. CHEST: Rise symmetrical. Breath sounds clear. HEART: S1, S2. ABDOMEN: Soft. Bowel sounds present. EXTREMITIES: With right lower extremity dressing below knee intact. ASSESSMENT: Right lower extremity cellulitis with chronic wound, wound culture growing enterococcus and Proteus mirabilis susceptible to ampicillin. PLAN: The patient had been seen by podiatry and vascular surgery, clear to be discharged home on or al antibiotics and follow [facility] for debridement and compression therap y. We will recommend to send her on oral amoxicillin and topical gentamicin ointment and also probi otics for 2 weeks. Dictated By: ELAN CIFUENTES CLAM GROWER for KAREN BAKER MD NI/NTS Conf#: [id number] DID#: [id number]
[2016-11-28] MEDS ORDERED: AMOXICILLIN 500 MG CAP PO SCH (14:00)
[2016-11-28] MEDS ORDERED: AMOX1TAB9 PO (16:23)
[2016-11-28] MEDS ORDERED: GENT30CR TOP (16:24)
--- NOTE | 2016-11-28 16:31 | DS ---
Date/Time of Note Date/Time of Note DATE: 11/28/16 TIME: 16:27 Discharge Summary Admission/Discharge Info Admit Date/Time Nov 24, 2016 at 04:52 Discharge Date/Time Final Diagnosis 1. Chronic left lower extremity venous stasis wound, follow up with wound care and PCP Patient Condition: Stable Hx of Present Illness This is a 46 yo female with no significant medical history who presented to ER with Right leg wound/ulcer and pain. She said it started out small 2 months ago with associated erythema on her floyd, but has been progressively getting worse. she said she has been to [facility] and has been treated with abx without help. Denied I&D. She does not have any other complains. . Hospital Course right leg with moderate size ulcer on lower floyd with surrounding erythema. Patient will be on wound care and oral augmentin. She is instructed to keep leg elevated. She will follow up with wound center also. Home Meds Active Scripts Gentamicin Sulfate* (Gentamicin Sulfate* Cream) 0.1% - 30 Gm Cream.gm., 1 APPLIC TOP TID for 14 Days, EA Prov:MICHELLE WILKERSON MD 11/28/16 Amoxicillin/Potassium Clav (Amox-Clav 500-125 mg Tablet) 500-125 mg Tab, 1 TAB PO Q8 for 14 Days, TAB Prov:MICHELLE WILKERSON MD 11/28/16 Follow-up Plan PCP in one week Pending Labs Laboratory Tests Test 11/28/16 04:57 White Blood Count 5.610^3/ul (4.8-10.8) Red Blood Count 4.4610^6/ul (4.20-5.40) Hemoglobin 12.7g/dl (12.0-16.0) Hematocrit 39.3% (37.0-47.0) Mean Corpuscular Volume 88.1fl (82.0-101.0) Mean Corpuscular Hemoglobin 28.5pg (29.0-33.0) Mean Corpuscular Hemoglobin Concent 32.3g/dl (32.0-37.0) Red Cell Distribution Width 12.3% (11.5-14.5) Platelet Count 22013^3/UL (140-415) Mean Platelet Volume 9.8fl (7.4-10.4) Neutrophils % 47.3% (39.0-77.0) Lymphocytes % 39.1% (15.0-51.0) Monocytes % 9.0% (0.0-11.0) Eosinophils % 4.0% (0.0-7.0) Basophils % 0.4% (0.0-2.0) Nucleated Red Blood Cells % 0.0/100WBC (0.0-0.0) Neutrophils # 2.610^3/ul (1.6-7.5) Lymphocytes # 2.210^3/ul (0.8-2.9) Monocytes # 0.510^3/ul (0.3-0.9) Eosinophils # 0.210^3/ul (0.0-0.5) Basophils # 0.010^3/ul (0.0-0.1) Nucleated Red Blood Cells # 0.010^3/ul (0.0-0.0) Sodium Level 138mmol/L (135-144) Potassium Level 4.0mmol/L (3.5-5.1) Chloride Level 103mmol/L (97-110) Carbon Dioxide Level 27mmol/L (21-31) Anion Gap 12 (8-16) Blood Urea Nitrogen 12mg/dl (7-20) Creatinine 0.63mg/dl (0.44-1.00) Glucose Level 92mg/dl (70-220) Calcium Level 9.6mg/dl (8.4-10.2) Phosphorus Level 4.4mg/dl (2.5-4.9) Magnesium Level 1.9mg/dl (1.7-2.5) Vitamin D 1,25-Dihydroxy 23.0ng/ml (30-100) MICHELLE WILKERSON MD November 28, 2016 16:31
[2016-11-28 20:27] VITALS: BP 134/71; RESP 18
[2016-11-28] MEDS ORDERED: GENTAMICIN 0.1% 15 GM OINT TOP SCH (21:00)
== END 2016-11-28 20:26 | disposition home or self-care (01) | DRG 300 ==
LOC: E/R 23:15 → PP2 11-24 04:52
PROVIDERS: ADMIT Internal Medicine; ATTEND Internal Medicine
DX: I83.013 Varicose veins of right lower extremity with ulcer of ankle (principal); L03.115 Cellulitis of right lower limb; N39.0 Urinary tract infection, site not specified; L97.811 Non-pressure chronic ulcer of other part of right lower leg limited to breakdown of skin; I86.8 Varicose veins of other specified sites; B96.4 Proteus (mirabilis) (morganii) as the cause of diseases classified elsewhere; B95.2 Enterococcus as the cause of diseases classified elsewhere; D64.9 Anemia, unspecified; I87.8 Other specified disorders of veins; I87.2 Venous insufficiency (chronic) (peripheral)
CPT/HCPCS: 36415; 71010; 73590; 80048; 80053; 80061; 80202; 81001; 81003; 82306; 82652; 83036; 83605; 83735; 84100; 85025; 85610; 85651; 85730; 87040; 87070; 87086; 93005; 93922; 93971; 96372; 96374; 96375; 96376; J0692; J1644; J2270; J2543; J3370; J7030